=== PATIENT | female | born 1960 | race Caucasian/White ===

== ENCOUNTER → 2016-09-21 | Outpatient (CLI) | payer BC, MEDICARE ==
--- NOTE | 2016-09-21 15:13 | ST Modified Barium Swallow ---
Recommendation - Recommendations Recommendations: 1) Recommend continued current diet. 2) Continue pills in puree. 3) Follow-up with treating speech therapist. SUMMARY: No penetration or aspiration observed during study. No pharyngeal residuals observed. Pt notes now that she takes her pills in puree she no longer has difficulty swallowing medications. ST recommends continued prophylactic swallowing exercises due to underlying conditions. Medical Diagnoses - Medical Diagnoses Medical Diagnosis Description & ICD-10 Code(s): other dysphagia Other Medical Diagnoses/Co-Morbidities: Sasakwa Disease, Sasakwa chorea, history of 3 strokes - ICD-10 Tx Diagnosis Coding (1) Dysphagia, oral phase ICD-10 Code(s): R13.11 - DYSPHAGIA, ORAL PHASE ST Modified Barium Swallow - General Date: 09/21/16 Referring Physician: Dr Lakeisha Ling Risks/Precautions: Falls - pt currently following PT Date of Onset: 07/08/16 Reason for Referral: other dysphagia - History History obtained from: Patient -: Medical - Pt has Sasakwa's disease, diagnosed with 2 years ago. Pt reports "gets choked" when eating and when not eating. Pt describes as choking sensation, however reports as more of a cough. Also notices most coughing on solids. Pt states when she talks nobody can understand her, states cannot be heard at restaurants, at drive through, or on telephone. States voice "does not project". States changes in speech started approximately 2 months ago, problems with swallowing started began around two years ago, pt reports are getting worse. Pt reports has begun to lose weight, states trys to eat and cannot. PMHx : stroke 3 years ago pt states unsure if any residual effects, vitamin b12 deficiency, HTN, Sasakwa chorea, abnormality of gait Medications: aspirin, vitamin D, vitamin B12 Allergies: none reported - Functional Status Prior Functional Status: INDEPENDENT: feeding Current Functional Limitations: feeding - Subjective Patient/caregiver goal(s): safe swallow, r/o aspiration Cognitive-Linguistic Function: Functional Speech Intelligibility: Severely dysarthric - mod-severe Current Nutritional Means: PO Current PO diet: Regular Current symptoms: Coughing Pain: 0/5 - Objective Assessment: Upright, Left Lateral - Food Trials Used Food trials used: Thin liquids, Pureed, Regular The patient: Was Able to Self Feed - Oral-Motor Skills Velo-pharyngeal function: Unremarkable Laryngeal Function: Volitional Cough, Volitional Swallow - Assessment Oral prep: Mildly Impaired - impaired coordination, decreased ROM Labial closure: Adequate Leakage: None Mastication: Munching Lingual Movement: Discoordinated Oral stage: Moderately Impaired - mild-moderate - Pharyngeal Stage Initiation of Pharyngeal Stage Reflex: Delayed Reflex Delay Time (Seconds): 1 Decreased laryngeal elevation: No Reduced Velopharyngeal Closure: no Reduced pressure generation: No reduced tongue-based retraction: Yes - mild resulting in trace residuals on puree, cleared independently by pt with second swallow Pre-swallow pooling in valleculae: None Pre-Swallow pooling in pyriforms: None Reduced Thyro-Hyoid approximation: No Reduced epiglottic excursion: No Reduced pharyngeal peristalsis/contraction: No Post-swallow residulas vallecular: None Post-Swallow residuals in pyriforms: None Reduced Cricopharyngeal opening: No - Fall Risk Assessment Medications/Conditions that increase fall risks include: Antidepressants, sedatives, anti-arrhythmic, diuretic, benzodiazipenes, neuroleptics. BP regulation problems, cardiac problems, balance or gait deficits, neurological problems. Is patient considered at risk for falls: yes Fall Risk Actions Taken: Pt physician notified - Behavioral Observations During evaluation process patient: was pleasant, was cooperative, able to answer questions, provided medical history - Treatment / Educational Needs: Treatment/Education Needs: Treatment consisted of patient education on the role of the Speech Pathologist. Patient's plan of care and golas were communicated as well as scheduling and attendance policies. Recommendations for initial home program were shared. Patient demonstrated understanding and verbalized agreement. - Impression/Summary Laryngeal Penetration: No Tracheal Aspiration: no Patient presents with: Oral stage dysphagia Risk of Aspiration: Mild - minimal-mild - Recommendations NPO: no Solid diet recommendations: Regular Liquid Diet Modification: Thin Strict aspiration precautions: No Pt/Family education and followup with MD: Yes Dysphagia therapy with QUALITY MANAGEMENT COORDINATOR: yes, f/u with current thera. Recommended techniques: Fully Upright During Meal, Small Bites and Sips Supervision: Independent Information, Precautions and Recommendations: Patient (Verbal) - Time Total Time: 20 - Plan of Care Strategies to optimize patient understanding include:: ongoing assessment of educational needs, implementation of educational strategies, and re-education. - - -: Thank you for the opportunity to work with this patient and his/her family. Should you have any questions about this patient's plan or progress, I can be reached at [phone]. Charge G Code? - - -: Yes ST Baron Impairment Category - Rationale Based On Rationale Based On: Clin Find., Obj Measures - Swallowing Current G8996: CI 1-19% Impaired Goal G8997: CI 1-19% Impaired Discharge G8998: CI 1-19% Impaired
== END ==
LOC: RAD 14:08
PROVIDERS: ATTEND Nurse Practitioner
DX: G10 Huntington's disease (principal); R13.11 Dysphagia, oral phase; R13.12 Dysphagia, oropharyngeal phase; R47.1 Dysarthria and anarthria
CPT/HCPCS: 74230; 92611; G8996; G8997; G8998

== ENCOUNTER → 2016-10-11 | Outpatient (CLI) | payer MEDICARE | LOC: WI 15:15 | PROVIDERS: ATTEND Nurse Practitioner | DX: Z12.31 Encounter for screening mammogram for malignant neoplasm of breast (principal) | CPT/HCPCS: 77067; G0202 ==

== ENCOUNTER → 2017-11-06 | Outpatient (CLI) | payer MEDICARE ==
--- NOTE | 2017-11-08 19:51 | WOMENS IMAGING REPORT ---
EXAM DESCRIPTION: 3D SCREENING MAMMO BILAT COMPLETED DATE/TIME: 11/06/2017 1:55 pm REASON FOR STUDY: SCREENING MAMMO Z12.31 ENCNTR SCREEN MAMMOGRAM FOR MALIGNANT NEOPLASM OF SLOAN COMPARISON: Multiple 2014 TECHNIQUE: Standard craniocaudal and mediolateral oblique views of each breast recorded using digita l acquisition and breast tomosynthesis. LIMITATIONS: None. FINDINGS: Findings present which are benign by mammographic criteria. No suspicious masses, calcifi cations or architectural distortion. Pertinent benign findings: Multiple stable benign mammographic nodules bilaterally Read with the assistance of CAD. .[facility] - R2 Cenova Version 1.3 .[facility] Imaging - R2 Cenova Version 1.3 .[facility] Imaging - R2 Cenova Version 2.4 .[facility] [place] Cenova Version 2.4 .[facility] - R2 Policy Value Calculator Version 9.2 Benign mammographic findings may include one or more of the following: Smooth masses, popcorn/rim/co arse calcifications, asymmetries, post-procedure changes, and lesions with long-standing stability. IMPRESSION: BENIGN MAMMOGRAPHIC FINDINGS. BIRADS 2 BREAST DENSITY: b. There are scattered areas of fibroglandular density. BIRAD: 2 BENIGN FINDING(S) RECOMMENDATION: RECOMMENDATION: ROUTINE SCREENING Please continue yearly bilateral screening tomosynthesis in October 2018 COMMENT: The patient has been notified of the results by letter per SA requirements. Additional no tification policies are in place for contacting patient with suspicious or incomplete findings. Quality ID #[id number]: The [employer] recommends an annual screening mammogram for women aged 40 years or over. This facility utilizes a reminder system to ensure that all patients receive reminder letters, and/or direct phone calls for appointments. This includes reminders for routine scr eening mammograms, diagnostic mammograms, or other Breast Imaging Interventions when appropriate. Th is patient will be placed in the appropriate reminder system. The [employer] (ACR) has developed recommendations for screening MRI of the breast s in certain patient populations, to be used in conjunction with mammography. Breast MRI surveillanc e may be appropriate for women with more than 20% lifetime risk of developing breast cancer as deter mined by genetic testing, significant family history of the disease, or history of mantle radiation f or Hodgkins Disease. ACR Practice Guidelines 2008. DBT Technology DBT is a type of tomographic mammography. With conventional mammography, overlapping breast tissue ma y make lesions difficult to detect, even with good compression. DBT uses an x-ray tube that rotates a round the breast, taking images at different angles. These images are then combined to create thin sl ices of the breast that the radiologist can view as a 3D reconstruction. The [employer] unit can perform full-field digital mammograms (2D imaging); or DBT (3D imaging); or both, in a combination mode that quickly performs both the mammogram and the tomosynthesis scan while the breast is still compressed. PQRS 6045F: Fluoroscopic imaging is not utilized for breast tomosynthesis. TECHNICAL DOCUMENTATION: FINDING NUMBER: (1) ASSESSMENT: (1) JOB ID: [id number] [employer]- All Rights Reserved Reading location - IP/workstation name: [email or web address]
== END ==
LOC: WI 13:33
PROVIDERS: ATTEND Nurse Practitioner
DX: Z12.31 Encounter for screening mammogram for malignant neoplasm of breast (principal)
CPT/HCPCS: 77063; 77067

== ENCOUNTER 2020-03-05 14:59 | Emergency (ER) | payer MEDICARE ==
--- NOTE | 2020-03-05 15:19 | ER Document Report ---
ED Medical Screen (RME) - General Chief Complaint: Urinary Problem Stated Complaint: URINARY PROBLEM Time Seen by Provider: 03/05/20 15:14 Primary Care Provider: AMILCAR HERNÁNDEZ NP [Primary Care Provider] - Follow up as needed Mode of Arrival: Wheelchair Information source: Patient, Relative Notes: Patient presents complaining of difficulty voiding for the past 3 days. Patient denies any abdominal pain or back pain. Patient denies any fever nausea or vomiting. Patient states she has not voided since yesterday. 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 I have greeted and performed a rapid initial assessment of this patient. A comprehensive ED assessment and evaluation of the patient, analysis of test results and completion of the medical decision making process will be conducted by additional ED providers. TRAVEL OUTSIDE OF THE [place] IN LAST 30 DAYS: No - Related Data Allergies/Adverse Reactions: No Known Allergies Allergy (Verified 03/05/20 15:14) Past Medical History Past Surgical History: Reports: Hx Tubal Ligation - Immunizations Hx Diphtheria, Pertussis, Tetanus Vaccination: No Physical Exam - Vital signs Vitals: Temp Pulse Resp BP Pulse Ox 98.8 F 74 18 140/75 H 100 03/05/20 15:08 03/05/20 15:08 03/05/20 15:08 03/05/20 15:08 03/05/20 15:08 - General General appearance: Alert Notes: Unkempt appearance - Back Back: No: CVA tenderness Course - Vital Signs Vital signs: Temp Pulse Resp BP Pulse Ox 98.8 F 74 18 140/75 H 100 03/05/20 15:08 03/05/20 15:08 03/05/20 15:08 03/05/20 15:08 03/05/20 15:08 Doctor's Discharge - Discharge Referrals: AMILCAR HERNÁNDEZ NP [Primary Care Provider] - Follow up as needed
[2020-03-05 16:15] LABS: ABSOLUTE LYMPHOCYTES (AUTO) 1.8 10^3/uL (0.5-4.7); ABSOLUTE MONOCYTES (AUTO) 0.4 10^3/uL (0.1-1.4); ABSOLUTE NEUT (AUTO) 4.5 10^3/uL (1.7-8.2); BASOPHILS % (AUTO) 0.5 % (0-2); EOSINOPHILS % (AUTO) 0.4 % (0-6); HEMATOCRIT 38.7 % (36.0-47.0); HEMOGLOBIN 13.1 g/dL (12.0-15.5); LYMPHOCYTES % (AUTO) 26.4 % (13-45); MEAN CORPUSCULAR HGB CONC 33.8 g/dL (32.0-36.0); MEAN CORPUSCULAR VOLUME 89 fl (80-97); MONOCYTES % (AUTO) 5.8 % (3-13); RED BLOOD COUNT 4.35 10^6/uL (3.72-5.28); SEGMENTED NEUTROPHILS % (AUTO) 66.9 % (42-78); TOTAL CELLS COUNTED % (AUTO) 100 %; WHITE BLOOD COUNT 6.7 10^3/uL (4.0-10.5)
[2020-03-05 16:32] LABS: ALBUMIN 4.5 g/dL (3.5-5.0); ALKALINE PHOSPHATASE 120 U/L (38-126); ANION GAP 10 (5-19); ASPARTATE AMINO TRANSFERASE 20 U/L (14-36); BILIRUBIN,DIRECT 0.2 mg/dL (0.0-0.4); BILIRUBIN,TOTAL 0.5 mg/dL (0.2-1.3); BLOOD UREA NITROGEN 24 mg/dL (7-20); CARBON DIOXIDE 29 mmol/L (22-30); CHLORIDE 106 mmol/L (98-107); GLUCOSE 113 mg/dL (75-110); POTASSIUM 4.3 mmol/L (3.6-5.0); TOTAL PROTEIN 7.4 g/dL (6.3-8.2)
[2020-03-05 17:07] LABS: PLATELET COUNT 252 10^3/uL (150-450)
[2020-03-05 18:23] LABS: AMORPHOUS SEDIMENT,URINE TRACE /HPF; APPEARANCE,URINE SLIGHTLY-CLOUDY; BILIRUBIN,URINE NEGATIVE (NEGATIVE); COLOR,URINE YELLOW; GLUCOSE, URINE NEGATIVE (NEGATIVE); KETONES,URINE NEGATIVE (NEGATIVE); LEUKOCYTE ESTERASE,URINE NEGATIVE (NEGATIVE); NITRITE,URINE NEGATIVE (NEGATIVE); PROTEIN,URINE NEGATIVE (NEGATIVE); URINE SPECIFIC GRAVITY 1.017; UROBILINOGEN,URINE NEGATIVE mg/dL (<2.0)
[2020-03-05] MEDS ORDERED: NORMAL SALINE 1000 ML 1,000 ML IV ONE (20:25)
--- NOTE | 2020-03-05 20:27 | ER Document Report ---
ED General - General Chief Complaint: Pain With Urination Stated Complaint: URINARY PROBLEM Time Seen by Provider: 03/05/20 15:14 Primary Care Provider: AMILCAR HERNÁNDEZ NP [Primary Care Provider] - Follow up in 3-5 days Mode of Arrival: Wheelchair Notes: Patient is a 59-year-old female with a history of Vivian's disease that comes emergency department for chief complaint of lack of voiding for the past day or so. Initially she reported to triage this was 3 days, however when I asked her she specifically states that she was able to urinate without difficulty yesterday and seemed like she simply was not urinating at all today. She denies dysuria, abdominal pain, flank pain, nausea, vomiting, fever/chills. She denies history of the same. She admits to decreased oral intake, mostly with food. She reports difficulty caring for herself. Her ex- and her neighbor is at bedside, he states that he shops for her and tries to look out for her, she is eating less than previously and they both state they feel like she could use more help around the house. She does not have any home health currently. Limited history otherwise, only reported medical history otherwise is tubal ligation. TRAVEL OUTSIDE OF THE [place] 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 Past Surgical History: Reports: Hx Tubal Ligation - Immunizations Hx Diphtheria, Pertussis, Tetanus Vaccination: No Review of Systems - Review of Systems Constitutional: No symptoms reported EENT: No symptoms reported Cardiovascular: No symptoms reported Respiratory: No symptoms reported Gastrointestinal: No symptoms reported Genitourinary: See HPI Female Genitourinary: No symptoms reported Musculoskeletal: No symptoms reported Skin: No symptoms reported Hematologic/Lymphatic: No symptoms reported Neurological/Psychological: No symptoms reported Physical Exam - Vital signs Vitals: Temp Pulse Resp BP Pulse Ox 98.8 F 74 18 140/75 H 100 03/05/20 15:08 03/05/20 15:08 03/05/20 15:08 03/05/20 15:08 03/05/20 15:08 - Notes Notes: GENERAL: Patient is very small, she is somewhat disheveled in appearance, however she is alert, cooperative, smiling, talkative HEAD: Normocephalic, atraumatic. EYES: Pupils equal, round, and reactive to light. Extraocular movements intact. ENT: Oral mucosa moist, tongue midline. Oropharynx unremarkable. Airway patent. NECK: Full range of motion. Supple. Trachea midline. No lymphadenopathy. LUNGS: Clear to auscultation bilaterally, no wheezes, rales, or rhonchi. No respiratory distress. Non-tender chest wall. HEART: Regular rate and rhythm. No murmur ABDOMEN: Soft, non-tender. Non-distended. EXTREMITIES: Moves all 4 extremities spontaneously. No edema, normal radial and dorsalis pedis pulses bilaterally. No cyanosis. BACK: no cervical, thoracic, lumbar midline tenderness. No saddle anesthesia, normal distal neurovascular exam. Moves all extremities in full range of motion. NEUROLOGICAL: Alert and oriented x3. Slightly difficult to understand speech but reportedly baseline. Cranial nerves II through XII grossly intact. PSYCH: Normal affect, normal mood. SKIN: Warm, dry, normal turgor. No rashes or lesions noted. Course - Re-evaluation Re-evalutation: CBC nonspecific, chemistry shows elevated BUN but is otherwise unremarkable, catheterized urine from triage noted and unremarkable without signs of infection. Patient has no flank pain, abdominal pain, nausea, vomiting, or fever. She has no complaints on my evaluation other than she is worried she w ill not be able to urinate at home. Patient also seems preoccupied with this, she states more than once that she thought she had a urinary tract infection. I discussed options. Patient would prefer not to have a Saucedo in place, she does not appear to be retaining urine, we gave IV fluids and patient then urinated without any difficulty. Patient was very pleased with this, she states she is ready to go home. However in addition to this patient and ex- at bedside state concerns about patient being able to care for self at home, states she is eating less as result and has been losing weight as a result. They state they are asking for help and would like additional assistance at home, however they are requesting to go home regardless. box office manager consult was placed, discussed follow-up instructions and return precautions. They state appreciation and agreement. Stable and well-appearing at time of discharge. - Vital Signs Vital signs: Temp Pulse Resp BP Pulse Ox 98.8 F 78 16 135/72 H 100 03/05/20 22:29 03/05/20 22:29 03/05/20 22:29 03/05/20 22:29 03/05/20 22:29 - Laboratory Result Diagrams: 03/05/20 15:43 03/05/20 15:43 Laboratory results interpreted by me: 03/05/20 15:43 BUN 24 H Glucose 113 H Discharge - Discharge Clinical Impression: Urinary symptom or sign Condition: Stable Disposition: HOME, SELF-CARE Additional Instructions: You have been evaluated with difficulties with urination, fortunately after hydration you were able to urinate without difficulty. Remaining evaluation is reassuring. We have a adult protective caseworker consult placed, you will be contacted for additional assistance. Return for any concerning symptoms including vomiting, abdominal pain, flank p ain/back pain, fever, or any other concerning or worsening symptoms. Referrals: AMILCAR HERNÁNDEZ NP [Primary Care Provider] - Follow up in 3-5 days
[2020-03-05 22:29] VITALS: BP 135/72
== END 2020-03-05 22:30 | disposition home or self-care (01) ==
LOC: ER 14:59
DX: R30.0 Dysuria (principal); R33.9 Retention of urine, unspecified; Z98.51 Tubal ligation status; Z88.6 Allergy status to analgesic agent
CPT/HCPCS: 99284; 96360; 51701; 36415; 87086; 85025; 80053; 81001; J7030

== ENCOUNTER 2020-04-25 14:22 | Emergency (ER) | payer MEDICARE ==
[2020-04-25] MEDS ORDERED: NORMAL SALINE 1000 ML 1,000 ML IV ONE ×2 (15:02→19:24)
--- NOTE | 2020-04-25 15:03 | ER Document Report ---
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 History is obtained from both the patient although limited and from a neighbor who brought the patient in. He states that he checks on her every week. States last time she was like that she was very dehydrated. Patient apparently had a fall in the bathroom and struck the back of her head on the ground no loss of consciousness does complain of headache and dizziness since the fall earlier today. Patient's friend indicates that she has lost a lot of weight he is concerned about dehydration with her PHYSICAL EXAMINATION: Cachectic female is noted. Heart rate taken manually is approximately 68. Lung sounds are clear to auscultation. No definitive trauma to the scalp noted I have greeted and performed a rapid initial assessment of this patient. A comprehensive ED assessment and evaluation of the patient, analysis of test results and completion of medical decision making process will be conducted by an additional ED providers. TRAVEL OUTSIDE OF THE [place] IN LAST 30 DAYS: No - Related Data Allergies/Adverse Reactions: No Known Allergies Allergy (Verified 04/25/20 14:56) Past Medical History - Social History Chew tobacco use (# tins/day): No Frequency of alcohol use: None Drug Abuse: None Past Surgical History: Reports: Hx Tubal Ligation - Immunizations Hx Diphtheria, Pertussis, Tetanus Vaccination: No Physical Exam - Vital signs Vitals: Temp Pulse Resp BP Pulse Ox 98.2 F 142 H 24 H 109/85 99 04/25/20 14:40 04/25/20 14:40 04/25/20 14:40 04/25/20 14:40 04/25/20 14:40 Course - Vital Signs Vital signs: Temp Pulse Resp BP Pulse Ox 98.2 F 68 24 H 109/85 99 04/25/20 14:40 04/25/20 15:01 04/25/20 14:40 04/25/20 14:40 04/25/20 14:40 Doctor's Discharge - Discharge Referrals: AMILCAR HERNÁNDEZ NP [Primary Care Provider] - Follow up as needed
--- NOTE | 2020-04-25 15:59 | RADIOLOGY REPORT (SQ) ---
EXAM DESCRIPTION: CT HEAD WITHOUT IMAGES COMPLETED DATE/TIME: 04/25/2020 2:44 pm REASON FOR STUDY: trauma COMPARISON: None. TECHNIQUE: Axial images acquired through the brain without intravenous contrast. Images reviewed wi th bone, brain and subdural windows. Additional sagittal and coronal reconstructions were generated. Images stored on PACS. All CT scanners at this facility use dose modulation, iterative reconstruction, and/or weight based d osing when appropriate to reduce radiation dose to as low as reasonably achievable (ALARA). [facility]: Dose Right [facility]: CareDose [facility]: Dose Right [facility]: Teradose 4D [facility]: Smart [employer] RADIATION DOSE: CT Rad equipment meets quality standard of care and radiation dose reduction techniq ues were employed. CTDIvol: 53.2 mGy. DLP: 911 mGy-cm. mGy. LIMITATIONS: Motion obscures detail. FINDINGS: VENTRICLES: Normal size and contour. CEREBRUM: Within the limits of the exam there is no evidence of intracranial mass, hemorrhage, mass e ffect or midline shift. Normal blunt-white matter differentiation. No evidence of acute territorial i nfarct. CEREBELLUM: No masses. No hemorrhage. No alteration of density. No evidence for acute infarction. EXTRAAXIAL SPACES: Within the limits of the examination, there is no evidence of an extra-axial fluid collection. No masses. ORBITS AND GLOBE: No intra- or extraconal masses. Normal contour of globe without masses. CALVARIUM: No fracture. PARANASAL SINUSES: No fluid or mucosal thickening. SOFT TISSUES: No mass or hematoma. OTHER: No other significant finding. IMPRESSION: Limited evaluation due to motion. Within the limits of the examination there is no evid ence of acute intracranial hemorrhage, mass, or evidence of acute territorial infarct. EVIDENCE OF ACUTE STROKE: NO. COMMENT: Quality ID # [id number]: Final reports with documentation of one or more dose reduction techniques (e.g., Automated exposure control, adjustment of the mA and/or kV according to patient size, use of iterative reconstruction technique) TECHNICAL DOCUMENTATION: JOB ID: [id number] 2010 [employer]- All Rights Reserved Reading location - IP/workstation name: [email or web address]
--- NOTE | 2020-04-25 16:01 | RADIOLOGY REPORT (SQ) ---
EXAM DESCRIPTION: CT CERVICAL SPINE WITHOUT IMAGES COMPLETED DATE/TIME: 04/25/2020 2:44 pm REASON FOR STUDY: trauma. COMPARISON: None. TECHNIQUE: Axial images acquired through the cervical spine without intravenous contrast. Images re viewed with lung, soft tissue and bone windows. Reconstructed coronal and sagittal MPR images review ed. Images stored on PACS. All CT scanners at this facility use dose modulation, iterative reconstruction, and/or weight based d osing when appropriate to reduce radiation dose to as low as reasonably achievable (ALARA). [facility]: Dose Right [facility]: CareDose [facility]: Dose Right [facility]: Teradose 4D [facility]: Smart [employer] RADIATION DOSE: CT Rad equipment meets quality standard of care and radiation dose reduction techniq ues were employed. CTDIvol: 4.8 mGy. DLP: 82 mGy-cm. mGy. LIMITATIONS: Mild motion artifact with minimal limitation. FINDINGS: ALIGNMENT: Anatomic. MINERALIZATION: Normal. VERTEBRAL BODIES: No acute fracture or loss of vertebral body height. Minimal spondylosis. DISCS: No significant disc bulge. Mild degenerative disc disease with loss of intervertebral disc he ight. No spinal canal stenosis. FACETS, LATERAL MASSES, POSTERIOR ELEMENTS: No fractures. No dislocation. No acute findings. HARDWARE: None in the spine. VISUALIZED RIBS: No fractures. LUNG APICES AND SOFT TISSUES: No significant or acute findings. OTHER: No other significant finding. IMPRESSION: No acute fracture or dislocation of the cervical spine. Mild spondylosis and degenerati ve disc disease. TECHNICAL DOCUMENTATION: JOB ID: [id number] Quality ID # [id number]: Final reports with documentation of one or more dose reduction techniques (e.g., Au tomated exposure control, adjustment of the mA and/or kV according to patient size, use of iterative reconstruction technique) 2010 [employer]- All Rights Reserved Reading location - IP/workstation name: [email or web address]
--- NOTE | 2020-04-25 16:12 | RADIOLOGY REPORT (SQ) ---
EXAM DESCRIPTION: CHEST SINGLE VIEW IMAGES COMPLETED DATE/TIME: 04/25/2020 2:54 pm REASON FOR STUDY: dizziness COMPARISON: None. . EXAM PARAMETERS: NUMBER OF VIEWS: One view. TECHNIQUE: Single frontal radiographic view of the chest acquired. RADIATION DOSE: NA LIMITATIONS: None. FINDINGS: LUNGS AND PLEURA: No opacities, masses or pneumothorax. No pleural effusion. MEDIASTINUM AND HILAR STRUCTURES: No masses. Contour normal. HEART AND VASCULAR STRUCTURES: Heart normal in size. Normal vasculature. BONES: No acute findings. HARDWARE: None in the chest. OTHER: No other significant finding. IMPRESSION: NO ACUTE RADIOGRAPHIC FINDING IN THE CHEST. TECHNICAL DOCUMENTATION: JOB ID: [id number] 2010 [email or web address]- All Rights Reserved Reading location - IP/workstation name: [email or web address]
--- NOTE | 2020-04-25 16:15 | ER Document Report ---
ED General - General Chief Complaint: Dizziness Stated Complaint: FALL/HIT HEAD, DIZZINESS Time Seen by Provider: 04/25/20 14:57 Primary Care Provider: AMILCAR HERNÁNDEZ NP [Primary Care Provider] - Follow up as needed TRAVEL OUTSIDE OF THE [place] 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 He apparently lives adjacent to the patient and takes groceries to her about once a week. He says she is deteriorated significantly within the last week. No vomiting. No fever. No cough or shortness of breath. - Related Data Allergies/Adverse Reactions: No Known Allergies Allergy (Verified 04/25/20 14:56) Past Medical History - General Information source: Patient, Relative, [facility] Records - Social History Smoking Status: Former Smoker Chew tobacco use (# tins/day): No Frequency of alcohol use: None Drug Abuse: None Family History: Reviewed & Not Pertinent Patient has homicidal ideation: No Neurological Medical History: Reports: Other - Manderson's disease Past Surgical History: Reports: Hx Tubal Ligation - Immunizations Hx Diphtheria, Pertussis, Tetanus Vaccination: No Review of Systems - Review of Systems Notes: Constitutional: Negative for fever. HENT: Negative for sore throat. Eyes: Negative for visual changes. Cardiovascular: Negative for chest pain. Respiratory: Negative for shortness of breath. Gastrointestinal: Swallowing difficulty as per HPI. Decreased intake of food and fluids. Negative for abdominal pain, vomiting or diarrhea. Genitourinary: Negative for dysuria. Musculoskeletal: Negative for back pain. Skin: Negative for rash. Neurological: Mild generalized headache. See HPI. 10 point ROS negative except as marked above and in HPI. Physical Exam - Vital signs Vitals: Temp Pulse Resp BP Pulse Ox 98.2 F 142 H 24 H 109/85 99 04/25/20 14:40 04/25/20 14:40 04/25/20 14:40 04/25/20 14:40 04/25/20 14:40 Pulse rate recorded at triage is erroneous. I have rechecked the pulse and this is 68. - Notes Notes: GENERAL: Cachectic female who appears older than stated age exhibiting generalized choreoathetoid movements. Patient appears acutely ill, chronically ill and severely dehydrated. SKIN: Decreased turgor. No rashes. Prominent facial hirsutism. HEAD: Bitemporal wasting. EYES: Eyes appear sunken. PERRLA. EOMI. Conjunctivae and sclerae clear. EARS: CANALS AND TMS CLEAR. NOSE: CLEAR. MOUTH: Tacky oral mucosa. Poor dentition. No stridor or edema. No drooling. NECK: Supple. No masses or thyromegaly. No adenopathy. Carotids 2+ without bruits. No JVD. BACK: Symmetrical without tenderness. CHEST: Mildly tachypneic. Breath sounds are clear and the chest expands symmetrically. HEART: Regular rhythm. No murmur gallop or rub. ABDOMEN: Soft nontender without masses, organomegaly or rebound. Bowel sounds normally active. No bruits. GENITALIA: Deferred. EXTREMITIES: Muscular wasting all 4 extremities. No edema. No calf tenderness. Cap refill less than 1.5 seconds. Dorsalis pedis and posterior tibial pulses 3+ and symmetrical. NEUROLOGICAL: GCS 15. Alert and oriented x3. Prominent generalized choreoathetoid movements with symmetrical movement of extremities. Dysarthric speech which is baseline according to family member. Cranial nerves II through XII intact. PSYCHIATRIC: Appropriate affect. Course - Re-evaluation Re-evalutation: 04/25/20 19:00 This is a 59-year-old lady with progressively worsening Manderson's chorea who came in today acutely dehydrated and generally weak. Imaging here included head CT, C-spine CT and chest x-ray all of which were unremarkable. Her urinalysis showed concentrated urine and ketonuria but was otherwise unremarkable. CBC and chemistry profile were unremarkable. I have given the patient some IV saline for rehydration she feels much better. She is tolerating some oral fluids at this time and I talk with her and her family member about risks of being hospitalized at this time given the fact that about 25% of our patients are Covid positive. They would like to have her discharged at this time with a prescription for Zofran and follow-up with PMD in the office. 04/25/20 19:05 - Vital Signs Vital signs: Temp Pulse Resp BP Pulse Ox 98.2 F 68 14 149/121 H 95 04/25/20 14:40 04/25/20 15:01 04/25/20 17:01 04/25/20 17:01 04/25/20 17:01 - Laboratory Result Diagrams: 04/25/20 16:00 04/25/20 16:00 Laboratory results interpreted by me: 04/25/20 04/25/20 04/25/20 16:00 16:00 16:00 RDW 14.5 H Lymph % (Auto) 8.3 L Seg Neutrophils % 85.8 H BUN 32 H Glucose 122 H Calcium 10.8 H TSH 0.34 L Urine Protein Urine Ketones Urine Urobilinogen 04/25/20 17:10 RDW Lymph % (Auto) Seg Neutrophils % BUN Glucose Calcium TSH Urine Protein 30 H Urine Ketones 80 H Urine Urobilinogen 4.0 H - Diagnostic Test Radiology reviewed: Image reviewed, Reports reviewed Radiology results interpreted by me: 04/25/20 16:[address] 04/25/20 15:00 IMPRESSION: Limited evaluation due to motion. Within the limits of the examination there is no evidence of acute intracranial hemorrhage, mass, or ortiz dence of acute territorial infarct. EVIDENCE OF ACUTE STROKE: NO. Cervical Spine CT 04/25/20 15:01 IMPRESSION: No acute fracture or dislocation of the cervical spine. Mild spondylosis and degenerative disc disease. Chest X-Ray 04/25/20 15:01 IMPRESSION: NO ACUTE RADIOGRAPHIC FINDING IN THE CHEST. Discharge - Discharge Clinical Impression: Dehydration, Huntingtons chorea Condition: Stable Disposition: HOME, SELF-CARE Instructions: Antinausea Medication ([facility]) Additional Instructions: Increase oral fluid intake. Take nausea medication as needed. Return here as needed for new or worsening symptoms. See your primary care provider in the office for further evaluation at your earliest convenience. Prescriptions: Ondansetron [Zofran Odt 4 mg Tablet] 1 - 2 tab PO Q4H PRN #15 tab.rapdis PRN Reason: For Nausea/Vomiting Referrals: AMILCAR HERNÁNDEZ, MATEO [Primary Care Provider] - Follow up as needed
[2020-04-25 16:38] LABS: ABSOLUTE LYMPHOCYTES (AUTO) 0.8 10^3/uL (0.5-4.7); ABSOLUTE MONOCYTES (AUTO) 0.5 10^3/uL (0.1-1.4); ABSOLUTE NEUT (AUTO) 7.7 10^3/uL (1.7-8.2); HEMATOCRIT 46.1 % (36.0-47.0); HEMOGLOBIN 15.2 g/dL (12.0-15.5); LYMPHOCYTES % (AUTO) 8.3 % (13-45); MEAN CORPUSCULAR HEMOGLOBIN 29.3 pg (27.0-33.4); MEAN CORPUSCULAR HGB CONC 32.9 g/dL (32.0-36.0); MEAN CORPUSCULAR VOLUME 89 fl (80-97); MONOCYTES % (AUTO) 5.9 % (3-13); PLATELET COUNT 303 10^3/uL (150-450); RED BLOOD COUNT 5.17 10^6/uL (3.72-5.28); RED CELL DISTRIBUTION WIDTH 14.5 % (11.5-14.0); SEGMENTED NEUTROPHILS % (AUTO) 85.8 % (42-78); TOTAL CELLS COUNTED % (AUTO) 100 %
[2020-04-25 16:55] LABS: ALBUMIN 4.9 g/dL (3.5-5.0); ALKALINE PHOSPHATASE 116 U/L (38-126); ANION GAP 16 (5-19); ASPARTATE AMINO TRANSFERASE 22 U/L (14-36); BILIRUBIN,DIRECT 0.4 mg/dL (0.0-0.4); BILIRUBIN,TOTAL 1.1 mg/dL (0.2-1.3); BLOOD UREA NITROGEN 32 mg/dL (7-20); CALCIUM 10.8 mg/dL (8.4-10.2); CARBON DIOXIDE 27 mmol/L (22-30); CHLORIDE 102 mmol/L (98-107); GLUCOSE 122 mg/dL (75-110); POTASSIUM 4.4 mmol/L (3.6-5.0); TOTAL PROTEIN 8.2 g/dL (6.3-8.2)
[2020-04-25 17:29] LABS: APPEARANCE,URINE CLEAR; BILIRUBIN,URINE NEGATIVE (NEGATIVE); COLOR,URINE AMBER; GLUCOSE, URINE NEGATIVE (NEGATIVE); KETONES,URINE 80 mg/dL (NEGATIVE); LEUKOCYTE ESTERASE,URINE NEGATIVE (NEGATIVE); NITRITE,URINE NEGATIVE (NEGATIVE); PROTEIN,URINE 30 mg/dL (NEGATIVE); URINE SPECIFIC GRAVITY 1.028
--- NOTE | 2020-04-25 18:51 | EKG REPORT ---
SEVERITY:- OTHERWISE NORMAL ECG - SINUS BRADYCARDIA : Confirmed by: Shemar Duffy MD 25-Apr-2020 18:50:52
[2020-04-25 20:45] VITALS: BP 148/82
== END 2020-04-25 20:45 | disposition home or self-care (01) ==
LOC: ER 14:22
DX: E86.0 Dehydration (principal); G10 Huntington's disease; R29.6 Repeated falls; R53.1 Weakness; R13.10 Dysphagia, unspecified; R51.9 Headache, unspecified; L68.0 Hirsutism; M50.30 Other cervical disc degeneration, unspecified cervical region; M47.819 Spondylosis without myelopathy or radiculopathy, site unspecified; Z87.891 Personal history of nicotine dependence
CPT/HCPCS: 93005; 99285; 96360; 96361; 36415; 84443; 85025; 80053; 81001; 84484; 71045; 70450; 72125; 93010; J7030

== ENCOUNTER 2020-04-29 17:06 | Emergency (ER) | payer MEDICARE ==
--- NOTE | 2020-04-29 18:18 | ER Document Report ---
ED General - General Chief Complaint: General Weakness Stated Complaint: WEAKNESS Primary Care Provider: AMILCAR HERNÁNDEZ NP [Primary Care Provider] - Follow up as needed Mode of Arrival: Medic Information source: Patient, Emergency Med Personnel TRAVEL OUTSIDE OF THE [place] 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 She was here in the emergency department 5 days ago for weakness and dehydration. She received IV hydration and symptomatic treatment and was discharged home. Despite the assistance of her ex- she has failed at home and is now returning to the emergency department for further care and placement. She is markedly dysarthric because of her neurologic disease so she is difficult to understand. She does not want to have a feeding tube placed. She does not wish any resuscitative efforts. She is interested in either long- term [facility] placement and/or hospice care. - Related Data Allergies/Adverse Reactions: No Known Allergies Allergy (Verified 04/25/20 14:56) Past Medical History - Social History Smoking Status: Unknown if Ever Smoked Family History: Reviewed & Not Pertinent - Medical History Notes: Past medical history is remarkable for Clallam's disease. Is otherwise noted in the electronic health record. Past Surgical History: Reports: Hx Tubal Ligation - Immunizations Hx Diphtheria, Pertussis, Tetanus Vaccination: No Review of Systems - Review of Systems -: Yes ROS unobtainable due to patient's medical condition Physical Exam - Vital signs Vitals: Temp Pulse Resp BP Pulse Ox 97.6 F 52 L 16 131/73 H 100 04/29/20 17:36 04/29/20 17:36 04/29/20 17:36 04/29/20 17:36 04/29/20 17:36 - Notes Notes: This is a cachectic, hirsute, dehydrated female who is in no acute physiologic distress. Vital signs are reviewed. Lungs: Clear to auscultation. Heart: Regular rate and rhythm no murmur. Abdomen: Scaphoid, soft, nontender, no masses or organomegaly. Extremities: Notable for marked muscle wasting. Course - Re-evaluation Re-evalutation: 04/29/20 20:22 Palliative orders for fluids were placed. The patient made clear that she is in a DO NOT RESUSCITATE status. She understands that she will likely have to spend the night here in the emergency department until case management can become involved to assist her with either placement in hospice or long-term care. - Vital Signs Vital signs: Temp Pulse Resp BP Pulse Ox 97.6 F 52 L 16 131/73 H 100 04/29/20 17:36 04/29/20 17:36 04/29/20 17:36 04/29/20 17:36 04/29/20 17:36 Discharge - Discharge Clinical Impression: Clallam's disease Condition: Poor Disposition: OTHER Referrals: AMILCAR HERNÁNDEZ NP [Primary Care Provider] - Follow up as needed
[2020-04-29] MEDS ORDERED: NORMAL SALINE 500 ML IV ONE (20:19)
[2020-04-29 21:08] LABS: ABSOLUTE MONOCYTES (AUTO) 0.6 10^3/uL (0.1-1.4); ABSOLUTE NEUT (AUTO) 9.3 10^3/uL (1.7-8.2); BASOPHILS % (AUTO) 0.2 % (0-2); HEMOGLOBIN 13.8 g/dL (12.0-15.5); LYMPHOCYTES % (AUTO) 9.4 % (13-45); MEAN CORPUSCULAR HEMOGLOBIN 29.2 pg (27.0-33.4); MEAN CORPUSCULAR VOLUME 89 fl (80-97); MONOCYTES % (AUTO) 5.5 % (3-13); PLATELET COUNT 246 10^3/uL (150-450); RED BLOOD COUNT 4.74 10^6/uL (3.72-5.28); RED CELL DISTRIBUTION WIDTH 14.3 % (11.5-14.0); SEGMENTED NEUTROPHILS % (AUTO) 84.9 % (42-78); TOTAL CELLS COUNTED % (AUTO) 100 %
[2020-04-29 21:26] LABS: ANION GAP 8 (5-19); BLOOD UREA NITROGEN 27 mg/dL (7-20); CARBON DIOXIDE 35 mmol/L (22-30); CHLORIDE 103 mmol/L (98-107); GLUCOSE 96 mg/dL (75-110); POTASSIUM 3.3 mmol/L (3.6-5.0)
[2020-04-29 21:53] LABS: APPEARANCE,URINE CLEAR; BILIRUBIN,URINE NEGATIVE (NEGATIVE); COLOR,URINE YELLOW; GLUCOSE, URINE NEGATIVE (NEGATIVE); KETONES,URINE 20 mg/dL (NEGATIVE); LEUKOCYTE ESTERASE,URINE LARGE (NEGATIVE); NITRITE,URINE NEGATIVE (NEGATIVE); PROTEIN,URINE 30 mg/dL (NEGATIVE)
[2020-04-29] MEDS ORDERED: POTASSI CL 20 MEQ/D5-1/2NS 1L 1,000 ML IV ONE (22:09)
[2020-04-30] MEDS ORDERED: CEFTRIAXONE 1 GM/D5W RTU 1 GM/50 ML RTUPB IV ONE (10:35)
[2020-04-30] MEDS ORDERED: CEFTRIAXONE 1 GM/D5W RTU 1 GM/50 ML RTUPB IV SCH (11:00)
[2020-04-30 16:58] VITALS: BP 142/81
== END 2020-04-30 16:58 | disposition home or self-care (01) ==
LOC: ER 17:06
DX: G10 Huntington's disease (principal); N39.0 Urinary tract infection, site not specified; E86.0 Dehydration; L68.0 Hirsutism; Z66 Do not resuscitate
CPT/HCPCS: 99284; 96365; 96366 ×2; 96367; 36415; 87086; 85025; 87088; 80048; 81001; 87186; J3480; J7040; J0696